=== PATIENT | male | born 1950 | race Caucasian/White ===

== ENCOUNTER → 2018-08-27 | Outpatient (CLI) | payer OTHER ==
[2018-08-27 10:12] LABS: ALBUMIN 3.7 g/dL (3.4-5.0); CALCIUM 9.6 mg/dL (8.5-10.1); CREATININE 0.7 mg/dL (0.7-1.3); GFR 111.5; POTASSIUM 5.1 mmol/L (3.5-5.1); TOTAL BILIRUBIN 0.4 mg/dL (0.2-1.0); TOTAL PROTEIN 7.5 g/dL (6.4-8.2)
== END | disposition home or self-care (01) ==
LOC: LAB 09:07
PROVIDERS: ATTEND Nurse Practitioner Family
DX: Z12.5 Encounter for screening for malignant neoplasm of prostate (principal); E11.65 Type 2 diabetes mellitus with hyperglycemia; E78.49 Other hyperlipidemia
CPT/HCPCS: 36415; 80053; 80061; 83036; G0103

== ENCOUNTER → 2019-03-22 | Outpatient (CLI) | payer OTHER, MEDICARE ==
[2019-03-22 10:51] LABS: BASO # 0.1 x10^3/uL (0.0-0.2); BASO % 1 % (0-3); EOS # 0.1 x10^3/uL (0.0-0.7); EOS % 1 % (0-3); HEMATOCRIT 45.9 % (39.0-53.0); HEMOGLOBIN 15.4 g/dL (13.0-17.5); LYMPH # 1.2 x10^3/uL (1.0-4.8); LYMPH % 18 % (24-48); MEAN CORPUSCULAR HEMOGLOBIN 31 pg (25-35); MEAN CORPUSCULAR HGB CONC 34 g/dL (31-37); MEAN CORPUSCULAR VOLUME 91 fL (79-100); MONO # 0.6 x10^3/uL (0.0-1.1); MONO % 9 % (0-9); NEUT # 4.7 x10^3uL (1.8-7.7); NEUT % 71 % (31-73); PLATELET COUNT 180 x10^3/uL (140-400); RED BLOOD COUNT 5.03 x10^6/uL (4.30-5.70); RED CELL DISTRIBUTION WIDTH 15.2 % (11.5-14.5); WHITE BLOOD COUNT 6.7 x10^3/uL (4.0-11.0)
[2019-03-22 10:57] LABS: ALBUMIN/GLOBULIN RATIO 1.2 (1.0-1.7); CALCIUM 9.8 mg/dL (8.5-10.1); CREATININE 0.7 mg/dL (0.7-1.3); GFR 111.5; POTASSIUM 4.3 mmol/L (3.5-5.1); TOTAL BILIRUBIN 0.3 mg/dL (0.2-1.0); TOTAL PROTEIN 7.4 g/dL (6.4-8.2)
[2019-03-22 23:06] LABS: HEMOGLOBIN A1C 6.8 % (4.8-5.6)
[2019-03-23 07:42] LABS: BACTERIA,URINE 0 /HPF (0-FEW); BILIRUBIN,URINE NEG (NEG); CLARITY,URINE CLEAR; COLOR,URINE STRAW; GLUCOSE,URINE NEG (NEG); NITRITE,URINE NEG (NEG); SQUAMOUS EPITHELIAL CELL,UR OCC /LPF; UROBILINOGEN,URINE 0.2 mg/dL (0.2 mg/dL)
== END | disposition home or self-care (01) ==
LOC: LAB 08:35
PROVIDERS: ATTEND Nurse Practitioner Family
DX: E11.65 Type 2 diabetes mellitus with hyperglycemia (principal); E78.49 Other hyperlipidemia
CPT/HCPCS: 36415; 80053; 80061; 81001; 82043; 83036; 85025

== ENCOUNTER 2019-04-01 08:36 | Emergency (ER) | payer MEDICARE, OTHER ==
[~2019-04-01] VITALS: Ht 167.6 cm; Wt 83.9 kg
--- NOTE | 2019-04-01 09:24 | PHYS DOC ---
Past History Past Medical History: Diabetes, Hypertension Past Surgical History: Other Smoking: Cigarettes Additional Smoking Information: One pack of cigarettes per day Alcohol Use: None Drug Use: None Adult General Chief Complaint Chief Complaint: FOOT INJURY PAIN HPI HPI Patient is a 68-year-old male presents complaining of a right foot ulcer. He initially noticed a puncture wound approximately 2 weeks ago, may have been due to chigger bites. 4-5 days ago noted that was a little bit worse so he saw his primary doctor 3 days ago and was seen by podiatry yesterday. Podiatry started him on doxycycline. He is uncertain as to when his last tetanus vaccination was. He was sent here for further evaluation beyond with podiatry office could provide. Patient denies any significant pain. Reports that his blood sugars are in the 120s. Noted that he had fever approximately a week ago. There was redness 4-5 days ago prompting his visit to the primary care physician but this is doing better since starting the antibiotics. Denies any specific trauma.[] Review of Systems Review of Systems Constitutional: Denies fever or chills [] Eyes: Denies change in visual acuity, redness, or eye pain [] HENT: Denies nasal congestion or sore throat [] Respiratory: Denies cough or shortness of breath [] Cardiovascular: No chest pain or palpitations[] GI: Denies abdominal pain, nausea, vomiting, bloody stools or diarrhea [] : Denies dysuria or hematuria [] Musculoskeletal: Denies back pain or joint pain, see history of present illness [] Integument: Denies rash, see history of present illness[] Neurologic: Denies headache, focal weakness or sensory changes [] Endocrine: Denies polyuria or polydipsia [] All other systems were reviewed and found to be within normal limits, except as documented in this note. Physical Exam Physical Exam Constitutional: Well developed, well nourished, no acute distress, non-toxic appearance. [] HENT: Normocephalic, atraumatic, bilateral external ears normal, oropharynx moist, no oral exudates, nose normal. [] Eyes: PERRLA, EOMI, conjunctiva normal, no discharge. [] Neck: Normal range of motion, no tenderness, supple, no stridor. [] Cardiovascular:Heart rate regular rhythm, no murmur [] Lungs & Thorax: Bilateral breath sounds clear to auscultation [] Abdomen: Not examined. [] Skin: Warm, dry, no erythema, no rash. [] Back: No tenderness, no CVA tenderness. [] Extremities: Right foot, medial first metatarsal joint region there is a 1 cm ulcer with healing tissue. No erythema. No inguinal lymphadenopathy. No tenderness to palpation. He has limited sensation but it is symmetric. Full active range of motion of ankle foot and toes. No pain with palpation or axial loading. The other 3 extremities show: No tenderness, no cyanosis, no clubbing, ROM intact, no edema. [] Neurologic: Alert and oriented X 3, normal motor function, normal sensory function, no focal deficits noted. [] Psychologic: Affect normal, judgement normal, mood normal. [] EKG EKG [] Radiology/Procedures Radiology/Procedures PROCEDURE: FOOT RIGHT 3V FOOT RIGHT 3V History: Infection at the first MTP joint. FINDINGS: Small soft tissue defect medial to the first metatarsal head, suggesting a small ulcer. Mild adjacent soft tissue swelling. No evidence of aggressive bone destruction. No evidence of acute fracture. Degenerative changes at the first MTP joint with hallux valgus. Mild calcaneal enthesophyte. IMPRESSION: 1. Small soft tissue defect or ulcer medial to the first metatarsal head with mild swelling. 2. Primary osteoarthritis of the first MTP joint. 3. No overtly aggressive bone destruction but MR is more sensitive for detection of osteomyelitis or abscess.[] Course & Med Decision Making Course & Med Decision Making Pertinent Labs and Imaging studies reviewed. (See chart for details) ED course: Patient arrived, was placed in bed, and tolerated exam well. He presented with a note from his digital marketing associate, Dr. spears, that requested a vascular evaluation including MRI, IV antibiotics, and possible surgical intervention. Explained to the patient that we do not have MRI or surgical capabilities here. We evaluated him within the capabilities of the [facility] system. Discussed findings and plan with the patient. He voiced understanding. In all questions were answered. He was discharged in improved condition. Medical decision making: Patient appears to have a healing diabetic foot ulcer at this time. There is no indication for an emergent MRI nor IV antibiotics nor admission given that the symptoms are improving with his oral outpatient medicine. Patient has no evidence of systemic inflammatory response given the normal erythrocyte sedimentation rate and CRP. No evidence of uncontrolled diab etes. No evidence of an indication for admission nor IV antibiotics at this time. [] Dragon Disclaimer Dragon Disclaimer This electronic medical record was generated, in whole or in part, using a voice recognition dictation system. Departure Departure: Impression: Primary Impression: Diabetic foot ulcer Disposition: HOME, SELF-CARE Condition: IMPROVED Referrals: RAJAN MARTINEZ (PCP) Follow-up in 2 days Patient Instructions: Wound Care, Bnsa-we-Dobs Additional Instructions: Continue your medication as prescribed. Stop smoking! Every time you smoke, you shrink blood vessels which bring the healing factors, nutrition, and antibiotics to the area. Continue local wound care. Follow-up with your regular doctor in 2 days. If necessary they can order an MRI as an outpatient. There is no MRI ca pability here at [facility]. Return to the ER if worsening pain, redness, or any other concerns. Problem Qualifiers Primary Impression: Diabetic foot ulcer Diabetic foot ulcer location: toe Diabetes mellitus type: type 2 Laterality: right Non-pressure ulcer stage: limited to breakdown of skin Qualified Codes: E11.621 - Type 2 diabetes mellitus with foot ulcer; L97.511 - Non-pressure chronic ulcer of other part of right foot limited to breakdown of skin PAL MAXWELL DO Apr 01, 2019 09:24
[2019-04-01 09:32] LABS: BACTERIA,URINE 0 /HPF (0-FEW); BILIRUBIN,URINE NEG (NEG); CLARITY,URINE CLEAR; COLOR,URINE STRAW; GLUCOSE,URINE NEG (NEG); NITRITE,URINE NEG (NEG); RBC,URINE RARE /HPF (0-2); SQUAMOUS EPITHELIAL CELL,UR OCC /LPF; UROBILINOGEN,URINE 0.2 mg/dL (0.2 mg/dL); WBC,URINE 0 /HPF (0-4)
--- NOTE | 2019-04-01 09:34 | RAD ---
FOOT RIGHT 3V History: Infection at the first MTP joint. FINDINGS: Small soft tissue defect medial to the first metatarsal head, suggesting a small ulcer. Mild adjacent soft tissue swelling. No evidence of aggressive bone destruction. No evidence of acute fracture. Degenerative changes at the first MTP joint with hallux valgus. Mild calcaneal enthesophyte. IMPRESSION: 1. Small soft tissue defect or ulcer medial to the first metatarsal head with mild swelling. 2. Primary osteoarthritis of the first MTP joint. 3. No overtly aggressive bone destruction but MR is more sensitive for detection of osteomyelitis or abscess. Electronically signed by: Matt Kiser MD (04/01/2019 9:31 AM) [facility]
[2019-04-01 09:42] VITALS: BP 169/58
[2019-04-01 09:43] LABS: BASO # 0.1 x10^3/uL (0.0-0.2); BASO % 1 % (0-3); EOS # 0.2 x10^3/uL (0.0-0.7); EOS % 2 % (0-3); HEMATOCRIT 46.1 % (39.0-53.0); HEMOGLOBIN 15.5 g/dL (13.0-17.5); LYMPH # 2.3 x10^3/uL (1.0-4.8); LYMPH % 30 % (24-48); MEAN CORPUSCULAR HEMOGLOBIN 30 pg (25-35); MEAN CORPUSCULAR HGB CONC 34 g/dL (31-37); MEAN CORPUSCULAR VOLUME 90 fL (79-100); MONO # 0.8 x10^3/uL (0.0-1.1); MONO % 11 % (0-9); NEUT # 4.3 x10^3uL (1.8-7.7); NEUT % 56 % (31-73); PLATELET COUNT 241 x10^3/uL (140-400); RED BLOOD COUNT 5.12 x10^6/uL (4.30-5.70); RED CELL DISTRIBUTION WIDTH 15.3 % (11.5-14.5); WHITE BLOOD COUNT 7.7 x10^3/uL (4.0-11.0)
[2019-04-01 09:55] LABS: ALBUMIN 4.1 g/dL (3.4-5.0); ALBUMIN/GLOBULIN RATIO 1.1 (1.0-1.7); CALCIUM 10.3 mg/dL (8.5-10.1); CREATININE 0.7 mg/dL (0.7-1.3); GFR 111.5; POTASSIUM 4.5 mmol/L (3.5-5.1); TOTAL BILIRUBIN 0.4 mg/dL (0.2-1.0); TOTAL PROTEIN 7.8 g/dL (6.4-8.2)
[2019-04-01] MEDS: DIPHTH,PERTUSS(ACELL),TET TOX 0.5 ML DISP.SYRIN. VAX IM ONE (11:33)
== END 2019-04-01 12:10 | disposition home or self-care (01) ==
LOC: ER 08:36
DX: E11.621 Type 2 diabetes mellitus with foot ulcer (principal); L97.511 Non-pressure chronic ulcer of other part of right foot limited to breakdown of skin; M19.071 Primary osteoarthritis, right ankle and foot; I10 Essential (primary) hypertension; F17.210 Nicotine dependence, cigarettes, uncomplicated
CPT/HCPCS: 36415; 73630; 80053; 81001; 83605; 85025; 85651; 86140; 87040; 90471; 90715; 99285-25

== ENCOUNTER → 2019-05-03 | Outpatient (CLI) | payer OTHER, MEDICARE ==
--- NOTE | 2019-05-03 11:22 | RAD ---
MR#: [id number] Date of Study: 05/03/2019 Ordering Physician: JOSE SLAUGHTER, Referring Physician: JOSE SLAUGHTER, Tech: Ashtyn Garcia, LEBRON, RVT, RTR APPROVED REPORT Patient Location: OUT-PATIENT Laterality:Bilateral Indications Bruit Grayscale images of the bilateral common carotid, external and internal carotid vessels demonstrates no high-grade focal stenosis. Spectral waveforms and color Doppler of the right internal carotid yarelis ry are grossly normal. Normal vertebral velocities. Similarly on the left no focal high-grade stenosi s is identified. Normal ICA to CCA ratios bilaterally. Risk Factors Hypertension: Tobacco abuse; PVD Doppler Spectral Velocity Analysis Right Left pCCA 93/17 cm/spCCA 106/24 cm/s mCCA 104/22 cm/smCCA 104/21 cm/s dCCA 99/24 cm/sdCCA 110/25 cm/s Bulb 64/16 cm/sBulb 76/16 cm/s ECA 60/10 cm/sECA 97/16 cm/s pICA 74/23 cm/spICA 93/21 cm/s Braeden 42/10 cm/smICA 90/31 cm/s dICA 56/15 cm/sdICA 99/40 cm/s Vert. 59/15 cm/sVert. 54/14 cm/s ICA/CCA 0.71ICA/CCA 0.95 Critical Notification Critical Value: No <Conclusion> 1. No significant carotid occlusive disease bilaterally. Signed by : Jose Slaughter, Electronically Approved : 05/03/2019 11:22:23
--- NOTE | 2019-05-03 11:25 | RAD ---
MR#: [id number] Date of Study: 05/03/2019 Ordering Physician: JOSE SLAUGHTER, Referring Physician: JOSE SLAUGHTER, Tech: Ashtyn Garcia, LEBRON, RVT, RTR APPROVED REPORT Patient Location: OUT-PATIENT Indications Non healing ulcer Right foot Risk Factors Hypertension SmokingGrayscale images were not well visualized due to bowel gas and obesity. Within these limitatio ns no obvious aneurysm is noted in the mid and distal abdominal aorta. The proximal common iliacs tiago ssly appear to be within normal limits. Spectral waveforms in the aorta are grossly within normal limits. Critical Notification Critical Value: No <Conclusion> No evidence of aortic aneurysm noted. Limited study due to body habitus. Signed by : Jose Slaughter, Electronically Approved : 05/03/2019 11:25:29
--- NOTE | 2019-05-03 11:32 | RAD ---
MR#: [id number] Date of Study: 05/03/2019 Ordering Physician: JOSE SLAUGHTER, Referring Physician: JOSE SLAUGHTER, Tech: Ashtyn Garcia, LEBRON, RVT, RTR APPROVED REPORT Patient Location: OUT-PATIENT Indications Non-healing Ulcer: Right Grayscale images of the bilateral lower extremity arterial vessels are notable for moderate diffuse p laque in throughout the arterial course. On the right there is a greater than 75% stenosis involving the profunda femoris. The SFAs occluded i n the proximal segment. It reconstitutes distally at the Dr. canal via collateral flow. There is thre e-vessel runoff below the knee with likely diffuse disease of greater than 50% stenosis involving the posterior tibial artery. Monophasic waveforms noted in the below-knee arteries likely due to more pr oximal occlusion. On the left there is mild diffuse disease in the common femoral artery and the superficial femoral ar kassie. There is a probable greater than 75% stenosis involving the proximal posterior tibial artery. N o other high-grade flow-limiting stenosis noted. Risk Factors Hypertension Smoking VELOCITY AND DOPPLER WAVEFORM ANALYSIS RIGHT cm/secWaveformSeverity LEFT cm/secWaveform Severity Ext Iliac Art. Ext Iliac Art. pCFA 122.3BiphasicpCFA 126.8Biphasic dCFA 100.0BiphasicdCFA 119.4Biphasic Prof Fem Art. 304.6BiphasicProf Fem Art. 70.3Biphasic Fem Art Prox. 85.1BiphasicFem Art Prox. 163.4BiphasicModerate > 50% Fem Art Mid. OccludedOccluded (100%)Fem Art Mid. 128.7Biphasic Fem Art Dist. 173.5BiphasicFem Art Dist. 125.8Biphasic Pop Art(AK) 64.8MonophasicPop Art(AK) 64.5Biphasic BLACKSMITH HELPER Prox. 21.0MonophasicPTA Prox. 306.6BiphasicSevere > 75% BLACKSMITH HELPER Dist. 48.4MonophasicPTA Dist. 68.9Biphasic Per Art Prox. 59.3MonophasicPer Art Prox. 79.3Biphasic DAPHNE Prox. 43.1MonophasicATA Prox. 59.3Biphasic DPA 29MonophasicDPA 36Biphasic Critical Notification Critical Value: No <Conclusion> 1. Right SFA occlusion. Signed by : Jose Slaughter, Electronically Approved : 05/03/2019 11:31:35
== END | disposition home or self-care (01) ==
LOC: US 07:51
PROVIDERS: ATTEND Internal Medicine Cardiovascular Disease
DX: I70.201 Unspecified atherosclerosis of native arteries of extremities, right leg (principal); L97.518 Non-pressure chronic ulcer of other part of right foot with other specified severity; I10 Essential (primary) hypertension; E66.9 Obesity, unspecified; Z72.0 Tobacco use
CPT/HCPCS: 76770; 93880; 93925

== ENCOUNTER → 2019-05-06 | Outpatient (CLI) | payer OTHER, MEDICARE ==
[2019-05-06 09:20] LABS: BASO # 0.1 x10^3/uL (0.0-0.2); BASO % 1 % (0-3); EOS # 0.2 x10^3/uL (0.0-0.7); EOS % 1 % (0-3); HEMATOCRIT 46.4 % (39.0-53.0); HEMOGLOBIN 15.5 g/dL (13.0-17.5); LYMPH # 2.3 x10^3/uL (1.0-4.8); LYMPH % 21 % (24-48); MEAN CORPUSCULAR HEMOGLOBIN 30 pg (25-35); MEAN CORPUSCULAR HGB CONC 33 g/dL (31-37); MEAN CORPUSCULAR VOLUME 91 fL (79-100); MONO # 0.8 x10^3/uL (0.0-1.1); MONO % 8 % (0-9); NEUT # 7.7 x10^3uL (1.8-7.7); NEUT % 70 % (31-73); PLATELET COUNT 206 x10^3/uL (140-400); RED BLOOD COUNT 5.09 x10^6/uL (4.30-5.70); RED CELL DISTRIBUTION WIDTH 14.7 % (11.5-14.5)
[2019-05-06 09:29] LABS: ALBUMIN 4.1 g/dL (3.4-5.0); ALBUMIN/GLOBULIN RATIO 1.2 (1.0-1.7); C REACTIVE PROTEIN 0.8 mg/L (0-3.3); CALCIUM 10.1 mg/dL (8.5-10.1); CREATININE 0.7 mg/dL (0.7-1.3); GFR 111.5; POTASSIUM 4.7 mmol/L (3.5-5.1); TOTAL BILIRUBIN 0.4 mg/dL (0.2-1.0); TOTAL PROTEIN 7.6 g/dL (6.4-8.2); URIC ACID 3.9 mg/dL (3.5-7.2)
[2019-05-06 10:25] LABS: SEDIMENTATION RATE 1 (0-15)
[2019-05-07 08:50] LABS: HEMOGLOBIN A1C 6.4 % (4.8-5.6)
== END | disposition home or self-care (01) ==
LOC: LAB 08:41
PROVIDERS: ATTEND Podiatrist
DX: L97.518 Non-pressure chronic ulcer of other part of right foot with other specified severity (principal); M10.9 Gout, unspecified
CPT/HCPCS: 36415; 80053; 83036; 84550; 85025; 85651; 86140

== ENCOUNTER → 2019-10-26 | Outpatient (CLI) | payer OTHER, MEDICARE ==
--- NOTE | 2019-10-26 10:36 | RAD ---
MR#: [id number] Date of Study: 10/26/2019 Ordering Physician: STERLING SANDERS, Referring Physician: STERLING SANDERS, Tech: Milady Ruvalcaba RDMS, RVT APPROVED REPORT Patient Location: OUT-PATIENT Indications FOLLOW UP EXAM AFTER RT SFA STENT PLACEMENT Risk Factors Diabetes Smoking Shin scale images of the RLE reveal a patent stent in the proximal to mid SFA. There are elevated yaritza ocities at the profunda suggestive of a 50% stenosis with mild encroachment from the ostial SFA stent . Mildly elevated velocities in the stent w/o critical disease. Distal SFA has a velocity of 200 cm/s which suggests a 50% stenosis. There are monophasic waveforms below the knee with a probable severe diffuse disease involving the peroneal artery. On the left, waveforms are mostly triphasic and biphasic without any focal stenosis noted. Distal ant erior velocities are diminished suggestive of diffuse disease at this location. VELOCITY AND DOPPLER WAVEFORM ANALYSIS RIGHT cm/secWaveformSeverity LEFT cm/secWaveform Severity pCFA 128.0BiphasicpCFA 81.0Triphasic dCFA 131.0BiphasicdCFA 79.0Triphasic Prof Fem Art. 250.0BiphasicProf Fem Art. 79.0Biphasic Fem Art Prox. 225.0MonophasicFem Art Prox. 121.0Biphasic Fem Art Mid. 57.0BiphasicFem Art Mid. 109.0Biphasic Fem Art Dist. 200.0MonophasicFem Art Dist. 120.0Biphasic Pop Art(Fossa) 61.0MonophasicPop Art(AK) 85.0Biphasic Pop Art(BK) 61.0MonophasicPop Art(BK) 88.0Biphasic WELDING MACHINE OPERATOR RESISTANCE Prox. 48.0MonophasicPTA Prox. 111.0Biphasic WELDING MACHINE OPERATOR RESISTANCE Dist. 54.0MonophasicPTA Dist. 132.0Biphasic Per Art Mid. 31.0MonophasicPer Art Mid. 87.0Biphasic DAPHNE Prox. 71.0MonophasicATA Prox. 28.0Biphasic DPA 53MonophasicDPA 60Monophasic Critical Notification Critical Value: No <Conclusion> 1. Patent proximal RSFA stent with likely distal SFA stenosis greater than 50%. 2. No critical left sided disease noted. Signed by : Jaycob Foster, Electronically Approved : 10/26/2019 10:36:12
== END | disposition home or self-care (01) ==
LOC: US 07:59
PROVIDERS: ATTEND Internal Medicine Cardiovascular Disease
DX: E11.51 Type 2 diabetes mellitus with diabetic peripheral angiopathy without gangrene (principal)
CPT/HCPCS: 93925

== ENCOUNTER → 2019-11-09 | Outpatient (CLI) | payer OTHER, MEDICARE ==
--- NOTE | 2019-11-09 15:11 | CARD ---
MR#: [id number] Date of Study: 11/09/2019 Ordering Physician: JOSE SLAUGHTER, Referring Physician: JOSE SLAUGHTER, Tech: Staci Hylton ANNETTE APPROVED REPORT EXAM: Two-dimensional and M-mode echocardiogram with Doppler and color Doppler. Other Information Quality : Good INDICATION Peripheral Vascular Disease RISK FACTORS Smoking 2D DIMENSIONS RVDd2.8 (2.9-3.5cm)Left Atrium(2D)4.0 (1.6-4.0cm) IVSd1.0 (0.7-1.1cm)Aortic Root(2D)2.9 (2.0-3.7cm) LVDd6.0 (3.9-5.9cm)LVOT Diameter2.1 (1.8-2.4cm) PWd1.1 (0.7-1.1cm)LVDs5.2 (2.5-4.0cm) FS (%) 13.0 %SV48.9 ml Aortic Valve AoV Peak Garrett.128.2cm/sAoV VTI20.9cm AO Peak GR.6.6mmHgLVOT Peak Garrett.113.9cm/s LVOT VTI 18.20cmAO Mean GR.4mmHg YAKOV (VMAX)3.59rl2MWX (VTI)3.06cm2 Mitral Valve MV E Uemcoyup52.6cm/sMV DECEL SPQC505po MV A Xgerllyi465.5cm/sE/A Ratio0.5 Pulmonary Vein S1 Bmkpbnfz93.5cm/sD2 Ktlkgisz35.1cm/s LEFT VENTRICLE The Left Ventricle is mild to moderately dilated. There is normal left ventricular wall thickness. Le ft ventricle systolic function is moderately impaired. The Ejection Fraction is 30-35%. There is glob al hypokinesis of the left ventricle. Transmitral Doppler flow pattern is Grade I-abnormal relaxation pattern. RIGHT VENTRICLE The right ventricle is normal size. The right ventricular systolic function is normal. ATRIA The left atrium is mildly dilated. The right atrium is mildly dilated. The interatrial septum is inta ct with no evidence for an atrial septal defect or patent foramen ovale as noted on 2-D or Doppler im aging. AORTIC VALVE The aortic valve is calcified but opens well. Doppler and Color Flow revealed no significant aortic r egurgitation. There is no significant aortic valvular stenosis. MITRAL VALVE The mitral valve is calcified but opens well. There is no evidence of mitral valve prolapse. There is no mitral valve stenosis. Doppler and Color-flow revealed trace mitral regurgitation. TRICUSPID VALVE The tricuspid valve is normal in structure and function. Doppler and Color Flow revealed no tricuspid valve regurgitation noted. There is no tricuspid valve stenosis. PULMONIC VALVE The pulmonic valve is not well visualized. Doppler and Color Flow revealed trace pulmonic valvular re gurgitation. There is no pulmonic valvular stenosis. GREAT VESSELS The aortic root is normal in size. The ascending aorta is normal in size. The IVC is normal in size a nd collapses >50% with inspiration. PERICARDIAL EFFUSION There is no evidence of significant pericardial effusion. Critical Notification Critical Value: No <Conclusion> The Left Ventricle is mild to moderately dilated. Left ventricle systolic function is moderately impaired. The Ejection Fraction is 30-35%. There is global hypokinesis of the left ventricle. Doppler and Color Flow revealed no significant aortic regurgitation. There is no significant aortic valvular stenosis. Doppler and Color-flow revealed trace mitral regurgitation. Doppler and Color Flow revealed no tricuspid valve regurgitation noted. Signed by : Timmy Mack MD Electronically Approved : 11/09/2019 15:10:49
== END | disposition home or self-care (01) ==
LOC: ECHO 13:45
PROVIDERS: ATTEND Internal Medicine Cardiovascular Disease
DX: I08.0 Rheumatic disorders of both mitral and aortic valves (principal); I73.9 Peripheral vascular disease, unspecified
CPT/HCPCS: 93306

== ENCOUNTER → 2020-10-06 | Outpatient (CLI) | payer OTHER, MEDICARE ==
[2020-10-06 09:59] LABS: BASO # 0.1 x10^3/uL (0.0-0.2); BASO % 1 % (0-3); EOS # 0.3 x10^3/uL (0.0-0.7); EOS % 3 % (0-3); HEMOGLOBIN 14.5 g/dL (13.0-17.5); LYMPH % 28 % (24-48); MEAN CORPUSCULAR HEMOGLOBIN 31 pg (25-35); MEAN CORPUSCULAR HGB CONC 33 g/dL (31-37); MEAN CORPUSCULAR VOLUME 93 fL (79-100); MONO # 0.8 x10^3/uL (0.0-1.1); MONO % 8 % (0-9); NEUT # 6.5 x10^3uL (1.8-7.7); NEUT % 61 % (31-73); PLATELET COUNT 224 x10^3/uL (140-400); RED BLOOD COUNT 4.75 x10^6/uL (4.30-5.70); RED CELL DISTRIBUTION WIDTH 13.4 % (11.5-14.5); WHITE BLOOD COUNT 10.7 x10^3/uL (4.0-11.0)
[2020-10-06 10:10] LABS: ALBUMIN/GLOBULIN RATIO 1.1 (1.0-1.7); CALCIUM 9.7 mg/dL (8.5-10.1); CREATININE 0.9 mg/dL (0.7-1.3); GFR 82.9; POTASSIUM 4.6 mmol/L (3.5-5.1); TOTAL BILIRUBIN 0.5 mg/dL (0.2-1.0); TOTAL PROTEIN 7.8 g/dL (6.4-8.2)
[2020-10-07 01:26] LABS: HEMOGLOBIN A1C 7.2 % (4.8-5.6)
== END ==
LOC: LAB 08:42
PROVIDERS: ATTEND Family Medicine
DX: E11.65 Type 2 diabetes mellitus with hyperglycemia (principal)
CPT/HCPCS: 36415; 80053; 80061; 83036; 85025

== ENCOUNTER → 2020-12-13 | Outpatient (CLI) | payer OTHER, MEDICARE ==
--- NOTE | 2020-12-18 14:30 | RAD ---
MR#: [id number] Date of Study: 12/13/2020 Ordering Physician: JOSE FOSTER, Referring Physician: JOSE FOSTER, Tech: Deb Johnson RVT, [place] APPROVED REPORT Patient Location: OUT-PATIENT Exam Type: Ankle to Brachial Index Indications PAD Right radial 138, left brachial 136 Right MITER CUTTER 118, left MITER CUTTER 112 Right dorsalis pedis 116, left dorsalis pedis 116 Right PILI 0.9, left PILI 0.8 Risk Factors Hypertension Diabetes Smoking Pressures/Indices RightABI LeftABI Brachial 138mmHgBrachial 136mmHg Ankle(PT) 118mmHgAnkle(PT) 112mmHg Ankle(DP) 380wvCd1.9Ankle(DP) 745ekQv5.8 Critical Notification Critical Value: No <Conclusion> 1. Mildly abnormal bilateral PILI. Signed by : Jose Foster, Electronically Approved : 12/18/2020 14:30:03
--- NOTE | 2020-12-18 14:33 | RAD ---
MR#: [id number] Date of Study: 12/13/2020 Ordering Physician: JOSE SLAUGHTER, Referring Physician: JOSE SLAUGHTER, Tech: Deb Johnson RVT, [facility] APPROVED REPORT Patient Location: OUT-PATIENT Indications PAD Grayscale images demonstrate moderate diffuse atherosclerosis of the lower extremity arterial vessels . There is a stent located in the right proximal SFA with patency and mildly elevated velocities but no focal stenosis identified. Probable greater than 70% stenosis involving the right profunda arter y. There is three-vessel runoff below the knee on the right side. No significant stenosis identifie d in the left side with three-vessel runoff noted again. Risk Factors Hypertension Diabetes Smoking Surgery/Intervention Stent : Site : RT SFA P VELOCITY AND DOPPLER WAVEFORM ANALYSIS RIGHT cm/secWaveformSeverity LEFT cm/secWaveform Severity pCFA 116.4BiphasicpCFA 132.8Triphasic Prof Fem Art. 524.0BiphasicProf Fem Art. 87.0Biphasic Fem Art Prox. 236.8BiphasicFem Art Prox. 174.1Biphasic Fem Art Mid. 245.0TriphasicFem Art Mid. 126.0Biphasic Fem Art Dist. 133.4TriphasicFem Art Dist. 120.8Biphasic Pop Art(Fossa) 42.7BiphasicPop Art(AK) 75.9Biphasic AIRWORTHINESS INSPECTOR Prox. 51.7TriphasicPTA Prox. 105.9Biphasic AIRWORTHINESS INSPECTOR Dist. 58.2TriphasicPTA Dist. 82.0Triphasic Per Art Prox. 37.6Per Art Prox. 76.5Triphasic DAPHNE Prox. 55.1TriphasicATA Prox. 43.2Biphasic DPA 50MonophasicDPA 63Triphasic Critical Notification Critical Value: No <Conclusion> 1. Mild to moderate diffuse atherosclerosis without any focal stenosis identified in the left lower extremity. 2. Probable greater than 70% stenosis involving the right profunda artery with a patent right SFA st ent and three-vessel runoff on the right side. Signed by : Jose Katrapati, Electronically Approved : 12/18/2020 14:33:24
== END ==
LOC: US 10:54
PROVIDERS: ATTEND Internal Medicine Cardiovascular Disease
DX: I73.9 Peripheral vascular disease, unspecified (principal)
CPT/HCPCS: 93922; 93925

== ENCOUNTER → 2021-10-01 | Outpatient (CLI) | payer OTHER, MEDICARE ==
[2021-10-01 09:59] LABS: BASO # 0.1 x10^3/uL (0.0-0.2); BASO % 1 % (0-3); EOS # 0.2 x10^3/uL (0.0-0.7); EOS % 2 % (0-3); HEMATOCRIT 44.9 % (39.0-53.0); HEMOGLOBIN 14.8 g/dL (13.0-17.5); LYMPH # 2.6 x10^3/uL (1.0-4.8); LYMPH % 24 % (24-48); MEAN CORPUSCULAR HEMOGLOBIN 31 pg (25-35); MEAN CORPUSCULAR HGB CONC 33 g/dL (31-37); MEAN CORPUSCULAR VOLUME 93 fL (79-100); MONO % 9 % (0-9); NEUT % 64 % (31-73); PLATELET COUNT 217 x10^3/uL (140-400); RED BLOOD COUNT 4.84 x10^6/uL (4.30-5.70); RED CELL DISTRIBUTION WIDTH 13.5 % (11.5-14.5); WHITE BLOOD COUNT 10.9 x10^3/uL (4.0-11.0)
[2021-10-01 10:31] LABS: ALBUMIN 4.3 g/dL (3.4-5.0); ALBUMIN/GLOBULIN RATIO 1.3 (1.0-1.7); CREATININE 0.9 mg/dL (0.7-1.3); GFR 82.7; POTASSIUM 4.5 mmol/L (3.5-5.1); TOTAL BILIRUBIN 0.6 mg/dL (0.2-1.0); TOTAL PROTEIN 7.5 g/dL (6.4-8.2)
[2021-10-02 02:06] LABS: HEMOGLOBIN A1C 7.2 % (4.8-5.6)
== END ==
LOC: LAB 08:59
PROVIDERS: ATTEND Family Medicine
DX: Z23 Encounter for immunization (principal); E11.65 Type 2 diabetes mellitus with hyperglycemia; D72.829 Elevated white blood cell count, unspecified
CPT/HCPCS: 36415; 80053; 83036; 84153; 85025; G0103